=== PATIENT | male | born 1960 | race Caucasian/White ===

== ENCOUNTER 2024-08-11 18:04 | Emergency (ER) | payer BC, SELFPAY ==
[2024-08-11 18:13] VITALS: BP 153/83
[2024-08-11 18:41] LABS: Urine Albumin 2+ (Neg - Trace); Urine Bilirubin Negative (Negative); Urine Character Cloudy (Clear); Urine Color Yellow; Urine Glucose Negative (Negative); Urine Ketone Negative (Negative); Urine Leukocyte 1+ (Negative); Urine Nitrite Negative (Negative); Urine Occult Blood 4+ (Negative); Urine Urobilinogen Negative (Neg - 1+)
[2024-08-11 18:46] LABS: % Basophils 0.7 % (0-2); % Eosinophils 2.4 % (0-6); % Immature Granulocytes 0.6 % (0-0.5); % Lymphocytes 24.5 % (20.5-51.1); % Monocytes 11.1 % (1.7-9.3); % Neutrophils 60.7 % (42.2-75.2); Absolute Basophils 0.1 10^3/uL (0-0.2); Absolute Eosinophils 0.2 10^3/uL (0-0.7); Absolute Lymphocytes 1.7 10^3/uL (1.2-3.4); Absolute Monocytes 0.8 10^3/uL (0.1-0.6); Absolute Neutrophils 4.3 10^3/uL (1.4-6.5); Hematocrit 43.3 % (39.0-52.0); Hemoglobin 14.5 g/dL (13.0-18.0); Mean Corp Hgb Conc. 33.5 g/dL (33.0-37.0); Mean Corpuscular Volume 86.6 fL (80.0-94.0); Mean Platelet Volume 8.5 fL (7.4-10.4); Nucleated Red Blood Cells % 0 % (-); Platelet Count 237 10^3/uL (130-400); Red Cell Dist. Width 12.6 % (11.5-14.5)
[2024-08-11 18:52] LABS: Urine Red Blood Cell >100 /HPF (0-2); Urine Squamous Cell 0-2 /LPF (Few)
[2024-08-11 18:53] LABS: Urine Bacteria Moderate (Negative); Urine White Cell 0-2 /HPF (0-5); Urine Yeast Few (Negative)
[2024-08-11 18:54] LABS: ALT (SGPT) 24 U/L (0-50); AST (SGOT) 23 U/L (17-59); Albumin 4.7 g/dl (3.5-5.0); Alkaline Phosphatase 87 U/L (38-126); Blood Urea Nitrogen 24 mg/dl (9-20); Calcium 9.4 mg/dl (8.4-10.2); Carbon Dioxide 25 mmol/L (22-30); Chloride 103 mmol/L (98-107); Glucose 116 mg/dl (70-99); Potassium 3.9 mmol/L (3.5-5.1); Sodium 137 mmol/L (135-145); Total Bilirubin 0.8 mg/dl (0.2-1.3); Total Protein 7.5 g/dl (6.3-8.2); eGFR > 60.00
--- NOTE | 2024-08-11 20:07 | ED.GENMED ---
History of Present Illness
<Cyndi Guzmán PA-C - Last Filed: 08/12/24 00:28>
General
Chief Complaint: Male Genito-Urinary Symptoms
Source: patient
Exam Limitations: none
Time Seen by Provider: 08/11/24 19:24
Nursing documentation reviewed up to this point in time: agreed with
History of Present Illness
History of Present Illness:
Patient is a 63-year-old male with history hypertension, hyperlipidemia, BPH presenting to the emergency department after episode of blood in his urine occurring today. Patient reports going to the bathroom earlier today while at work and noticing
bright red blood in toilet bowl. Patient denies any associated dysuria, abdominal pain, flank pain, or back pain. Patient was able to collect a urine specimen and bring to the emergency department. He has since urinated in the emergency
department and it is much clearer.
Patient denies any fevers, nausea/vomiting, chest pain, shortness of breath. No lightheadedness or dizziness. No recent trauma.
Patient does report history of enlarged prostate and urinary frequency. However�the symptoms have remained relatively unchanged from baseline.
Patient is not on any blood thinners.
No history of smoking. No notable family medical history
Past History
<Cyndi Guzmán PA-C - Last Filed: 08/12/24 00:28>
Past History
ED Past Medical History: None
ED Past Surgical History: None
Review of Systems
<Cyndi Guzmán PA-C - Last Filed: 08/12/24 00:28>
Review of Systems
Allergies reviewed?: Yes
All Other Systems: ROS reviewed and negative except as documented in HPI and ROS
Phy Exam
<Cyndi Guzmán PA-C - Last Filed: 08/12/24 00:28>
Physical Exam
Physical Exam:
Vitals: Hypertensive, otherwise vital signs stable. Afebrile
General: Patient is well appearing, no acute distress
Skin: Warm and dry, no rashes or lesions
Head: Normocephalic, atraumatic
Eyes: Sclera nonicteric. EOMs intact. No nystagmus.
Throat: Protecting airway
Neck: Normal ROM, no cervical spine tenderness, no meningismus
Cardiac: Regular rate and rhythm, no murmurs.
Pulm: Normal respiratory effort, no wheezes, rales, rhonchi heard on exam.
Abdomen: Abdomen soft and nontender.
Back: No CVA tenderness. No flank, back ecchymoses.
Extremities: No evidence of cyanosis or edema. Palpable DP pulses bilateral
Neuro: AAOx3. Grossly intact.
Psychiatric: Normal affect.
Course
<Cyndi Guzmán PA-C - Last Filed: 08/12/24 00:28>
Orders/Labs/Results
Orders:
Orders
08/11/24 18:19
Complete Blood Count/With Diff Urgent
Comprehensive Metabolic Panel Urgent
Urinalysis Reflex To Culture Urgent
Date Specimen was Collected: 08/11/24
Time Specimen was Collected: 18:16
Urine Microscopic Reflex Cult Urgent
Urine Culture Urgent
SARA Source: U
Specimen Description:
Date Specimen was Collected: 08/11/24
Time Specimen was Collected: 18:16
08/11/24 20:06
CT Abd/pelvis W Iv Cont Urgent
Comment:
Reason For Exam: Gross hematura
0.9% Sodium Chloride 500 ml [Nss] 500 ml IV BOLUS
Abnormal Lab Results
08/11/24
18:19
Absolute Monos (auto) 0.8 H 10^3/uL
(0.1-0.6)
Immature Gran % 0.6 H %
(0-0.5)
Monocytes % 11.1 H %
(1.7-9.3)
BUN 24 H mg/dl
(9-20)
Glucose 116 H mg/dl
(70-99)
Ur Occult Blood Reflex 4+ A
(Negative)
Leukocyte Esterase Rfl 1+ A
(Negative)
Urine RBC >100 A /HPF
(0-2)
Urine Bacteria (Reflex) Moderate A
(Negative)
Urine Yeast Few A
(Negative)
Urine Albumin (Reflex) 2+ A
(Neg - Trace)
08/11/24 18:19
08/11/24 18:19
Vital Signs
Initial and Last Documented VS:
Initial Vital Signs
Temp Pulse Resp BP Pulse Ox
98.3 F 59 16 153/83 97
08/11/24 18:13 08/11/24 18:13 08/11/24 18:13 08/11/24 18:13 08/11/24 18:13
Last Documented Vital Signs
Temp Pulse Resp BP Pulse Ox
98.3 F 59 16 153/83 97
08/11/24 18:13 08/11/24 18:13 08/11/24 18:13 08/11/24 18:13 08/11/24 18:13
<Madelaine Hummel MD - Last Filed: 08/12/24 01:03>
Orders/Labs/Results
Orders:
Orders
08/11/24 18:19
Complete Blood Count/With Diff Urgent
Comprehensive Metabolic Panel Urgent
Urinalysis Reflex To Culture Urgent
Date Specimen was Collected: 08/11/24
Time Specimen was Collected: 18:16
Urine Microscopic Reflex Cult Urgent
Urine Culture Urgent
SARA Source: U
Specimen Description:
Date Specimen was Collected: 08/11/24
Time Specimen was Collected: 18:16
08/11/24 20:06
CT Abd/pelvis W Iv Cont Urgent
Comment:
Reason For Exam: Gross hematura
0.9% Sodium Chloride 500 ml [Nss] 500 ml IV BOLUS
Abnormal Lab Results
08/11/24
18:19
Absolute Monos (auto) 0.8 H 10^3/uL
(0.1-0.6)
Immature Gran % 0.6 H %
(0-0.5)
Monocytes % 11.1 H %
(1.7-9.3)
BUN 24 H mg/dl
(9-20)
Glucose 116 H mg/dl
(70-99)
Ur Occult Blood Reflex 4+ A
(Negative)
Leukocyte Esterase Rfl 1+ A
(Negative)
Urine RBC >100 A /HPF
(0-2)
Urine Bacteria (Reflex) Moderate A
(Negative)
Urine Yeast Few A
(Negative)
Urine Albumin (Reflex) 2+ A
(Neg - Trace)
08/11/24 18:19
08/11/24 18:19
Vital Signs
Initial and Last Documented VS:
Initial Vital Signs
Temp Pulse Resp BP Pulse Ox
98.3 F 59 16 153/83 97
08/11/24 18:13 08/11/24 18:13 08/11/24 18:13 08/11/24 18:13 08/11/24 18:13
Last Documented Vital Signs
Temp Pulse Resp BP Pulse Ox
98.3 F 59 16 153/83 97
08/11/24 18:13 08/11/24 18:13 08/11/24 18:13 08/11/24 18:13 08/11/24 18:13
<Cyndi Guzmán PA-C - Last Filed: 08/12/24 00:28>
MDM/Problems Addressed
Differential Diagnosis Includes:
Not limited to: Hemorrhagic cystitis, BPH, nephrolithiasis, malignancy, etc.
MDM/Problems Addressed:
63-year-old male presenting after episode of painless gross hematuria. No associated dysuria, abdominal pain, flank/back pain, vomiting, fevers. Vitals and physical exam as above. Patient very well-appearing, in no apparent distress. Abdomen
soft and nontender with no CVA tenderness or ecchymoses of flank/back. No evidence of traumatic injury. Patient not on any blood thinners. Basic labs initiated in triage without any clinically significant abnormalities. Hemoglobin stable at
14.5. UA shows significant hematuria > 100 RBC although does not appear overtly infected. However�urine culture will be sent. Will check CT scan abdomen/pelvis for possible etiology however�ultimately patient will require urology follow-up for
further evaluation.
Update: CT abdomen/pelvis reviewed. There is enlargement of the prostate noted to be extending into the base of the bladder. This may be potentially contributing to patient's hematuria. However�no evidence of renal mass or focal abnormality of
the bladder. Also cyst noted in right kidney. Findings discussed with patient and . Given patient is hemodynamically stable with normal hemoglobin�feel stable for discharge home with outpatient urology follow-up. Return precautions discussed
patient. Will hold antibiotic pending urine culture given patient has no dysuria or other symptoms of UTI. Patient comfortable this plan. Verbalized understanding and provided copy of CT report.
Chronic conditions affecting care:
Hypertension
Acute Exacerbation and/or Progression of Chronic Illness:
Acutely hypertensive
<Cyndi Guzmán PA-C - Last Filed: 08/12/24 00:28>
*Radiology
Radiology exam reviewed: preliminary read by ED provider and radiology read reviewed
*Pulse Oximetry
Patient hypoxic: no
*EKG
Interpreted by ED Provider?: NA
*Assembler Adjuster Interpretation
Rate: Assembler Adjuster- N/A
*Critical Care Note
Total Time (30-74mins, 75-104mins- exclusive of procedures): Not Applicable
ED Attending Note
<Cyndi Guzmán PA-C - Last Filed: 08/12/24 00:28>
-
Portions of this chart may have been created with voice recognition software.� Occasional wrong word or��sound alike� substitutions may have occurred due to the inherent limitations of voice recognition software.
<Madelaine Hummel MD - Last Filed: 08/12/24 01:03>
ED Attending Note
Patient seen and examined by attending physician: Yes
I performed the substantive portion of visit, reviewed & personally made and approve the management plan that is documented in note by myself or ANGELO.: Yes
ED Attending Note:
Patient is hemodynamically stable and very well-appearing. Heart sounds regular lungs are clear
Discharge Plan
Departure
Patient Disposition: Home (Routine Discharge)
Date of Disposition: 08/11/24
Time of Disposition: 22:01
Patient with high blood pressure during this ER visit?: Yes
Condition: Good
Covid-19: Not Applicable
Discharge Problem:
Gross hematuria
Instructions: Blood in the Urine (Hematuria), Adult (DC), BLOOD PRESSURE
Prescriptions:
No Action
atorvastatin 20 mg Tablet
20 mg PO DAILY
bisoprolol-hydrochlorothiazide 10-6.25 mg Tablet
1 tab PO DAILY
losartan 25 mg Tablet
25 mg PO DAILY
Referrals:
Larry Quigley MD [Active] - Call in 1-3 days for appt
UNKNOWN - PT DOES,NOT KNOW [Unknown Provider] -
Activity Restrictions/Additional Instructions:
Return to the emergency department any fevers, severe abdominal or back pain, persistent/heavy blood in urine, lightheadedness, shortness of breath, worsening current symptoms, or any other concerns
-As discussed�it is important that you follow-up with urology for further evaluation and management of the blood seen in your urine. This may require further imaging/procedures. Contact information for a urologist has been provided for you above.
-Stay well-hydrated
Monitor your symptoms closely and return to the emergency department with any acute worsening/new symptoms or any other concerns
Interventions
Interventions:
*Risk Screen - Suicide Last Done: 08/11/24 18:15
*General Assessment Last Done: 08/11/24 20:56
*Neglect/Abuse Screening Last Done: 08/11/24 18:15
*ED- Fall Risk Assessment Last Done: 08/11/24 20:56
*Nursing Disposition Last Done: 08/11/24 22:24
ED-Male Genitourinary Assessment Last Done: 08/11/24 20:56
Discharge Date and Time
Discharge Date/Time: 08/11/24 22:25
Print Language: GEORGIAN
[2024-08-11] MEDS: NSS 500 IV (21:08)
== END 2024-08-11 22:25 | disposition home or self-care (01) ==
LOC: EMR 18:04
PROVIDERS: Emergency Medicine; EMERGENCY PHYSICIAN Emergency Medicine; FAMILY PHYSICIAN Physician Assistant Medical
DX: R31.0 Gross hematuria (principal); I10 Essential (primary) hypertension; E78.5 Hyperlipidemia, unspecified; N40.0 Benign prostatic hyperplasia without lower urinary tract symptoms
CPT/HCPCS: 99284; 96360; 74177; 80053; 81003; 81015; 85025; 87086; Q9967

== ENCOUNTER → 2025-03-19 13:41 | Outpatient (REF) | payer BC, SELFPAY | LOC: HWRAD 13:41 | PROVIDERS: ATTENDING PHYSICIAN Physician Assistant Medical | DX: M17.0 Bilateral primary osteoarthritis of knee (principal) | CPT/HCPCS: 73564 ==